=== PATIENT | female | born 1955 | race Caucasian/White ===

== ENCOUNTER → 2023-12-27 14:41 | Outpatient (BNVA) | payer MEDICARE, BC, SELFPAY | PROVIDERS: Visit Provider Thoracic Surgery (Cardiothoracic Vascular Surgery) | DX: S81.002D Unspecified open wound, left knee, subsequent encounter (principal); W19.XXXD Unspecified fall, subsequent encounter; I96 Gangrene, not elsewhere classified | CPT/HCPCS: 97597; 99203; A6021 ==

== ENCOUNTER → 2024-01-03 14:02 | Outpatient (BNVA) | payer MEDICARE, BC, SELFPAY | PROVIDERS: Visit Provider Thoracic Surgery (Cardiothoracic Vascular Surgery) | DX: S81.002D Unspecified open wound, left knee, subsequent encounter (principal); W17.89XD Other fall from one level to another, subsequent encounter | CPT/HCPCS: 97597 ==

== ENCOUNTER → 2024-01-12 12:59 | Outpatient (BNVA) | payer MEDICARE, BC, SELFPAY | PROVIDERS: Visit Provider Thoracic Surgery (Cardiothoracic Vascular Surgery) | DX: I96 Gangrene, not elsewhere classified (principal); S81.002D Unspecified open wound, left knee, subsequent encounter; W17.89XD Other fall from one level to another, subsequent encounter | CPT/HCPCS: 97597; A6021; A6248 ==

== ENCOUNTER → 2024-01-19 13:20 | Outpatient (BNVA) | payer MEDICARE, BC, SELFPAY | PROVIDERS: Visit Provider Thoracic Surgery (Cardiothoracic Vascular Surgery) | DX: I96 Gangrene, not elsewhere classified (principal); S81.002D Unspecified open wound, left knee, subsequent encounter; W19.XXXD Unspecified fall, subsequent encounter | CPT/HCPCS: 97597; A6210; A6220 ==